=== PATIENT | male | born 1965 | race African-American/Black ===

== ENCOUNTER 2018-08-05 08:20 | Inpatient (IN) ==
[2018-08-05] MEDS ORDERED: ZOFRAN INJ 4 MG VIAL ONE ×2 (08:26→08:54)
[2018-08-05] MEDS ORDERED: ZOFRAN INJ 4 MG VIAL IVP ONE ×2 (08:28→08:59)
[2018-08-05 08:43] VITALS: BMI 27.3
[2018-08-05] MEDS ORDERED: NS 1000 ML 1,000 ML ONE (08:55)
[2018-08-05] MEDS ORDERED: PEPCID 20 MG IV PREMIX* 20 MG/50 ML BAG IV ONE ×2 (08:58→09:02)
[2018-08-05] MEDS ORDERED: PROTONIX INJ 40 MG VIAL ONE (08:59)
[2018-08-05] MEDS: NS 1000 ML 1,000 ML IV SCH ×3 (09:00→17:22)
[2018-08-05] MEDS ORDERED: PROTONIX INJ 40 MG VIAL IVP ONE (09:02)
--- NOTE | 2018-08-05 09:04 | DR.GENAD ---
HPI Time Seen Time Seen by Provider: 08/05/18 08:45 PCP Primary Care Physician: JUAN MANUEL HPI Comment HPI Comment: WORSE TODAY. Complaint/Symptoms Chief Complaint Doctors Comments: ABDOMINAL PAIN, NAUSEA, VOMITING, DYSURIA AND HEMATURIA TIMES2 DAYS. DENIES FEVER BUT HAVE LOWER BACK PAIN WELL. Chief Complaint:: PT C/O ABD PAIN, NAUSEA AND VOMITTING, AND URINATING BLOOD AND HE STATES IT IS BURNING WHEN HE URINATES. PT STATES HE HAS BEEN FEELING BAD FOR THE PAST FEW DAYS. Nurses notes reviewed Nurses Notes Review: Yes Source History Provided: Patient Mode of Arrival Mode of Arrival: Ambulatory Timing Onset of Chief Complaint: 08/03/18 Came on: Suddenly Duration Duration: Constant Duration: Days Severity Severity: Moderate Associated Signs and Symptoms Associated Signs and Symptoms: NAUSEA AND VOMITING. Other History Other History: HEMATURIA AND DYSURIA PMH PMH Past Medical History: Yes Past Medical History: Diabetes, GERD and Hypertension Past Surgical History: No Family History History of Family Medical Conditions: Yes Family Medical History: Diabetes Mellitus, [place], Sudden Cardiac and Hypertension Social History Does any household member use tobacco: No Alcohol Use: Occasionally Do you use any recreational Drugs:: No Lives With: Alone Lives Where: Home infectious screening In the last 2 months have you had wt loss of >10#?: NO Have you had fever, night sweats or hemotysis?: No Have you traveled outside the country in the last 6 months?: No Isolation: Standard ROS Review of Systems Constitutional: Weakness and Fatigue; negative Fever Eyes: No Symptoms Reported ENTM: No Symptoms Reported Respiratoy: No Symptoms Reported Cardiovascular: No Symptoms Reported Gastrointestinal/Abdominal: Abdominal Pain, Nausea and Vomiting Genitourinary: Dysuria and Frequency Neurological: No Symptoms Reported Musculoskeletal: Muscle Pain Integumentary: No Symptoms Reported Hematologic/Lymphatic: No Symptoms Reported Endocrine: No Symptoms Reported Psychiatric: No Symptoms Reported All Other Systems: Reviewed and Negative PE Vital Signs Vitals: Temperature 98.2 F Pulse Rate 84 Respiratory Rate 29 Blood Pressure [Right Arm] 175/98 Blood Pressure [Left Arm] 138/84 Blood Pressure 159/93 O2 Sat by Pulse Oximetry 91 General Limitations: No Limitations General Appearance: Alert and In No Apparent Distress Head Head Exam: Normal Inspection Eyes Eye exam: Normal Appearance ENT ENT Exam: Normal Exam External Ear Exam: Normal External Inspection TM/Canal Exam: Bilateral: Normal Nose Exam: Normal Nose Exam Mouth Exam: Normal Inspection Throat Exam: Normal Inspection Neck Neck Exam: Normal Inspection Respiratory Respiratory Exam: Normal Lung Sounds Bilat Respiratory Exam: Bilateral: Clear to Auscultation Cardiovascular Cardiovascular Exam: Regular Rate Abdominal Exam Abdominal Exam: Normal Inspection Abdominal Tenderness: RUQ Extremities Extremities Exam: Normal Inspection Back Back Exam: Normal Inspection Neurologic Neurological Exam: Alert, Oriented X3 and CN II-XII Intact; negative Motor Sensory Deficit Psychiatric Psychiatric Exam: Normal Affect and Normal Mood Skin Skin Exam: Intact MDM Differential Diagnosis Differential Diagnosis: PYELONEPHRITIS, KIDNEY STONE, UTI, BOWEL OBSTRUCTION, DIVERTICULITIS COURSE Treatment Treatment: SEE ORDERS. Consultation Consultation Comments: PATIENT ADMITTED TO DR. MCKEON. Education/Counseling Education/Counseling: Patient Educated On: Diagnosis ROR Labs Reviewed Laboratory Results Reviewed?: Yes Result Diagrams: 08/08/18 05:35 08/08/18 05:35 Laboratory: 08/05/18 09:47 Blood Blood Culture - Final 08/05/18 08:50 Blood Blood Culture - Final 08/05/18 08:57 Urine,Clean Catch Urine Culture - Final Klebsiella Pneumoniae WBC 7.3 X10^3/uL (3.6-10.0) 08/08/18 05:35 RBC 3.44 X10^6/uL (4.7-6.0) L 08/08/18 05:35 Hgb 10.2 g/dL (13.5-18.0) L 08/08/18 05:35 Hct 30.2 % (42.0-54.0) L 08/08/18 05:35 MCV 87.8 fL (80.0-100.0) 08/08/18 05:35 MCH 29.7 pg (27.0-34.0) 08/08/18 05:35 MCHC 33.9 g/dL (33.0-35.0) 08/08/18 05:35 RDW 13.3 % (11.6-16.5) 08/08/18 05:35 Plt Count 170 X10^3/uL (150.0-450.0) 08/08/18 05:35 Plt Count Comment Adequate (ADEQUATE) 08/06/18 06:00 MPV 8.1 fL (7.4-11.0) 08/08/18 05:35 Neut % (Auto) 80.4 % (42.0-75.0) H 08/08/18 05:35 Lymph % (Auto) 7.6 % (21.0-51.0) L 08/08/18 05:35 [place] % (Auto) 8.5 % (0.0-13.0) 08/08/18 05:35 Eos % (Auto) 2.9 % (0.9-2.9) 08/08/18 05:35 Baso % (Auto) 0.6 % (0.2-1.0) 08/08/18 05:35 Neut # (Auto) 5.8 x10^3/uL (2.2-4.8) H 08/08/18 05:35 Lymph # (Auto) 0.6 X10^3/uL (1.3-2.9) L 08/08/18 05:35 [place] # (Auto) 0.6 x10^3/uL (0.3-0.8) 08/08/18 05:35 Eos # (Auto) 0.2 x10^3/uL (0.0-0.2) 08/08/18 05:35 Baso # (Auto) 0.0 X10^3/uL (0.0-0.1) 08/08/18 05:35 Absolute Nucleated RBC 0.0 /100WBC 08/08/18 05:35 Plt Morphology Comment Normal (NORMAL) 08/06/18 06:00 RBC Morphology Normal (NORMAL) 08/06/18 06:00 INR Target Range - 08/05/18 08:50 INR 1.28 (0.8-1.3) 08/05/18 08:50 APTT 39.1 SECONDS (22.9-36.5) H 08/05/18 08:50 PTT Comment - 08/05/18 08:50 Sodium 139 mmol/L (136-145) 08/08/18 05:35 Corrected Sodium TNP 08/08/18 05:35 Potassium 3.3 mmol/L (3.5-5.1) L 08/08/18 05:35 Chloride 108 mmol/L (98-107) H 08/08/18 05:35 Carbon Dioxide 21.8 mmol/L (21-32) 08/08/18 05:35 BUN 11 mg/dL (7-18) 08/08/18 05:35 Creatinine 1.36 mg/dL (0.70-1.30) H 08/08/18 05:35 Est GFR (MDRD) Af Amer > 60 (>60) 08/08/18 05:35 Est GFR (MDRD) Non-Af 58 (>60) L 08/08/18 05:35 Glucose 107 mg/dL (65-99) H 08/08/18 05:35 Lactic Acid 0.8 mmol/L (0.4-2.0) 08/06/18 06:00 Calcium 7.6 mg/dL (8.5-10.1) L 08/08/18 05:35 Corrected Calcium 9.0 mg/dL (8.5-10.1) 08/08/18 05:35 Phosphorus 2.8 mg/dL (2.6-4.7) 08/06/18 06:00 Magnesium 2.2 mg/dL (1.7-2.9) 08/06/18 06:00 Total Bilirubin 0.40 mg/dL (0.2-1.0) 08/08/18 05:35 AST 16 Units/L (15-37) 08/08/18 05:35 ALT 17 Units/L (12-78) 08/08/18 05:35 Alkaline Phosphatase 57 Units/L (46-116) 08/08/18 05:35 Creatine Kinase 197 Units/L (39-308) 08/05/18 08:50 CK-MB (CK-2) 1.5 ng/mL (0-4.0) 08/05/18 08:50 CK/CKMB % Calc 0.8 % (<4) 08/05/18 08:50 Troponin I < 0.02 ng/mL (0-1.5) 08/05/18 08:50 C-Reactive Protein 151.10 mg/L (0-3.0) H 08/07/18 06:10 Total Protein 6.4 g/dL (6.4-8.2) 08/08/18 05:35 Albumin 2.2 g/dL (3.4-5.0) L 08/08/18 05:35 Globulin 4.2 g/dL (2.5-4.5) 08/08/18 05:35 Albumin/Globulin Ratio 0.5 Ratio (1.1-2.1) L 08/08/18 05:35 Amylase 88 Units/L (25-115) 08/05/18 08:50 Lipase 100 Units/L (73-393) 08/05/18 08:50 Specimen Type Clean catch urine 08/06/18 06:45 Urine Color Yellow (YELLOW) 08/06/18 06:45 Urine Appearance Cloudy (CLEAR) 08/06/18 06:45 Urine pH 5.0 (5.0 - 8.0) 08/06/18 06:45 Ur Specific [place] 1.015 (1.000-1.030) 08/06/18 06:45 Urine Protein 3+ (NEGATIVE) 08/06/18 06:45 Urine Glucose (UA) Negative (NEGATIVE) 08/06/18 06:45 Urine Ketones Negative (NEGATIVE) 08/06/18 06:45 Urine Occult Blood 5+ (NEGATIVE) 08/06/18 06:45 Urine Nitrite Negative (NEGATIVE) 08/06/18 06:45 Urine Bilirubin Negative (NEGATIVE) 08/06/18 06:45 Urine Urobilinogen Normal (NORMAL) 08/06/18 06:45 Ur Leukocyte Esterase 3+ (NEGATIVE) 08/06/18 06:45 Urine RBC 5-10 /HPF (NONE SEEN) 08/06/18 06:45 Urine WBC 30-50 /HPF (NONE SEEN) 08/06/18 06:45 Ur Squamous Epith Cells Negative /HPF (NEGATIVE) 08/06/18 06:45 Ur Transition Epith Cell Cancelled 08/05/18 08:50 Ur Renal Epithelial Cell Cancelled 08/05/18 08:50 Calcium Oxalate Crystal Cancelled 08/05/18 08:50 Cystine Crystals Cancelled 08/05/18 08:50 Uric Acid Crystals Cancelled 08/05/18 08:50 Triple Phos Crystals Cancelled 08/05/18 08:50 Tyrosine Crystals Cancelled 08/05/18 08:50 Other Crystals Cancelled 08/05/18 08:50 Amorphous Sediment Trace /HPF (NEGATIVE) 08/06/18 06:45 Urine Bacteria Trace /HPF (NEGATIVE) 08/06/18 06:45 Hyaline Casts Cancelled 08/05/18 08:50 Granular Casts Cancelled 08/05/18 08:50 Fine Granular Casts Cancelled 08/05/18 08:50 Coarse Granular Casts Cancelled 08/05/18 08:50 RBC Casts Cancelled 08/05/18 08:50 Other Casts Cancelled 08/05/18 08:50 Urine Mucus Few /HPF (NEGATIVE) 08/06/18 06:45 Urine Trichomonas Cancelled 08/05/18 08:50 Urine Yeast Cancelled 08/05/18 08:50 Urine Sperm Cancelled 08/05/18 08:50 Ur Culture Indicated? No/not indicated 08/06/18 06:45 Acetone, Semi-Quant Negative (NEGATIVE) 08/05/18 08:50 XRAY XRAY Interpreted by: Radiologist XRAY Findings: REPORT NOTED Diagnosis Discharge Problem: Sepsis due to urinary tract infection Instructions Instructions: Type 1 Diabetes Mellitus, Self Care, Adult Hypertension, [id number] Urosepsis Forms: Excuse From Work Patient Portal
[2018-08-05 09:12] LABS: COLOR,URINE BLOODY (YELLOW)
[2018-08-05 09:13] LABS: APPEARANCE,URINE CLOUDY (CLEAR); RBC,URINE TNTC /HPF (NONE SEEN)
[2018-08-05 09:14] LABS: BACTERIA,URINE NEGATIVE /HPF (NEGATIVE); SQUAMOUS EPITHELIAL CELL,UR NEGATIVE /HPF (NEGATIVE)
[2018-08-05 09:27] LABS: ALANINE AMINOTRANSFERASE 20 Units/L (12-78); ALBUMIN 3.2 g/dL (3.4-5.0); ALKALINE PHOSPHATASE 78 Units/L (46-116); AMYLASE 88 Units/L (25-115); ASPARTATE AMINO TRANSFERASE 17 Units/L (15-37); BLOOD UREA NITROGEN 38 mg/dL (7-18); CALCIUM 8.3 mg/dL (8.5-10.1); CARBON DIOXIDE 21.7 mmol/L (21-32); CHLORIDE 96 mmol/L (98-107); COR CA(FOR HYPOALB) 8.9 mg/dL (8.5-10.1); COR NA(FOR HYPERGLY) 135 mmol/L (136-145); CREATININE 2.86 mg/dL (0.70-1.30); LIPASE 100 Units/L (73-393); SODIUM 133 mmol/L (136-145); TOTAL PROTEIN 8.3 g/dL (6.4-8.2); eGFR NON BLACK RACES 25 (>60)
[2018-08-05 09:31] LABS: BASOPHILS # (AUTO) 0.1 X10^3/uL (0.0-0.1); BASOPHILS % (AUTO) 0.3 % (0.2-1.0); HEMATOCRIT 38.3 % (42.0-54.0); HEMOGLOBIN 12.8 g/dL (13.5-18.0); LYMPHOCYTES # (AUTO) 0.8 X10^3/uL (1.3-2.9); LYMPHOCYTES % (AUTO) 4.4 % (21.0-51.0); MEAN CORPUSCULAR HEMOGLOBIN 29.5 pg (27.0-34.0); MEAN CORPUSCULAR HGB CONC 33.5 g/dL (33.0-35.0); MEAN CORPUSCULAR VOLUME 88.1 fL (80.0-100.0); MEAN PLATELET VOLUME 8.6 fL (7.4-11.0); MONOCYTES # (AUTO) 3.1 x10^3/uL (0.3-0.8); MONOCYTES % (AUTO) 18.3 % (0.0-13.0); NEUTROPHILS # (AUTO) 13.1 x10^3/uL (2.2-4.8); PLATELET COUNT 192 X10^3/uL (150.0-450.0); RED BLOOD COUNT 4.35 X10^6/uL (4.7-6.0); RED CELL DISTRIBUTION WIDTH 13.6 % (11.6-16.5); SERUM ACETONE NEGATIVE (NEGATIVE); WHITE BLOOD COUNT 17.1 X10^3/uL (3.6-10.0)
[2018-08-05 09:42] LABS: LACTIC ACID 3.5 mmol/L (0.4-2.0)
[2018-08-05] MEDS ORDERED: ZOSYN VIAL 3.375 GRAMS 3.375 G in NS 100 ML IV + SPIKE MINIBAG* 100 ML IV ONE (10:49)
[2018-08-05] MEDS ORDERED: ZOSYN VIAL 3.375 GRAMS IV ONE (10:58)
[2018-08-05] MEDS ORDERED: NS 100 ML IV + SPIKE MINIBAG* 100 ML IV ONE ×2 (10:58→14:44)
[2018-08-05] MEDS ORDERED: PHENERGAN INJ 25 MG ONE (11:01)
[2018-08-05] MEDS ORDERED: PHENERGAN INJ 25 MG IV ONE (11:05)
[2018-08-05 11:34] LABS: CKMB % 0.8 % (<4); CREATINE KINASE 197 Units/L (39-308); CREATINE KINASE MB 1.5 ng/mL (0-4.0); TROPONIN I < 0.02 ng/mL (0-1.5)
--- NOTE | 2018-08-05 11:46 | CT ---
HISTORY: Abdominal pain, nausea and vomiting. Patient has been urinating blood. Burning when urinati ng. Study: Noncontrast CT scan of the abdomen and pelvis Comparison: CT scan of the abdomen and pelvis done 11/13/2016 and prior ultrasound of the abdomen yuriy chavarria 09/13/2016. Technique: Non contrasted CT images of the abdomen and pelvis are reviewed in axial, coronal and sagi ttal planes. Dose reduction techniques utilized automatic exposure control. Findings: Lung bases are clear. There is a small hiatal hernia present. The liver, spleen, gallbladder, pancrea s and right kidney are unremarkable. The upper pole of the left kidney appears edematous with perinep hric stranding. There is evidence of hydronephrosis involving the left upper renal pole with some per ipheral calcification. Differential diagnosis would include complex cyst. No evidence of stone is see n. Pyelonephritis with pus filled calices is also a consideration. Both ureters are normal. Urinary bladder is unremarkable. No evidence of bowel obstruction or perforation is seen. There is no evidenc e of free intraperitoneal air or fluid. Small lymph nodes are present in the perinephric region on th e left. A tiny calcified appendicolith is seen within a normal appendix. Osseous structures are intac t. IMPRESSION: Inflammatory appearing upper pole of the left kidney. This appears to be on the basis of hydronephros is involving the left upper pole region. Some of the calices display peripheral calcification. Differ ential diagnosis would include a complex cyst versus pyelonephritis with pus filled calices. There i s perinephric stranding and small perinephric lymph nodes are present in this region also. Further ev aluation by ultrasound or CT with IV contrast may be helpful. Reported By:
[2018-08-05] MEDS: ROCEPHIN VIAL 2 GRAMS IVP SCH (14:47)
[2018-08-05] MEDS ORDERED: POTASSIUM CHLORIDE LIQ 20 MEQ UDC PO PRN (14:52)
[2018-08-05] MEDS ORDERED: MICRO K EXTEN CAP 10 MEQ PO PRN (14:52)
[2018-08-05] MEDS ORDERED: K-RIDER 10 MEQ/NS 100 ML 10 MEQ/100 ML BAG IV PRN (14:52)
[2018-08-05] MEDS ORDERED: POTASSIUM CHL 60 MEQ/NS 0.45% 500 ML IV PRN (14:52)
[2018-08-05] MEDS ORDERED: POTASSIUM CHL 40 MEQ/NS 0.45% 500 ML IV PRN (14:52)
[2018-08-05] MEDS ORDERED: KLOR-CON PO PRN (14:52)
[2018-08-05] MEDS: MAGNESIUM SULFATE 1 GRAM/100 mL PREMIX 1 GM/100 ML BAG IV PRN ×4 (16:24→20:20)
[2018-08-05] MEDS ORDERED: PHENERGAN INJ 25 MG IV PRN (23:51)
[2018-08-06] MEDS: NS 1000 ML 1,000 ML IV SCH ×3 (01:35→22:00)
[2018-08-06 06:14] LABS: BASOPHILS # (AUTO) 0.1 X10^3/uL (0.0-0.1); BASOPHILS % (AUTO) 0.6 % (0.2-1.0); EOSINOPHILS % (AUTO) 0.3 % (0.9-2.9); HEMATOCRIT 34.6 % (42.0-54.0); HEMOGLOBIN 11.6 g/dL (13.5-18.0); LYMPHOCYTES # (AUTO) 0.6 X10^3/uL (1.3-2.9); LYMPHOCYTES % (AUTO) 6.9 % (21.0-51.0); MEAN CORPUSCULAR HEMOGLOBIN 29.5 pg (27.0-34.0); MEAN CORPUSCULAR HGB CONC 33.5 g/dL (33.0-35.0); MEAN PLATELET VOLUME 8.3 fL (7.4-11.0); MONOCYTES # (AUTO) 1.7 x10^3/uL (0.3-0.8); MONOCYTES % (AUTO) 18.9 % (0.0-13.0); NEUTROPHILS # (AUTO) 6.6 x10^3/uL (2.2-4.8); NEUTROPHILS % (AUTO) 73.3 % (42.0-75.0); PLATELET COUNT 147 X10^3/uL (150.0-450.0); RED BLOOD COUNT 3.93 X10^6/uL (4.7-6.0); RED CELL DISTRIBUTION WIDTH 13.9 % (11.6-16.5)
[2018-08-06 06:29] LABS: ALBUMIN 2.4 g/dL (3.4-5.0); CALCIUM 7.7 mg/dL (8.5-10.1); CARBON DIOXIDE 22.3 mmol/L (21-32); CREATININE 2.23 mg/dL (0.70-1.30); MAGNESIUM 2.2 mg/dL (1.7-2.9); PHOSPHORUS 2.8 mg/dL (2.6-4.7); TOTAL PROTEIN 7.1 g/dL (6.4-8.2)
[2018-08-06 06:32] LABS: LACTIC ACID 0.8 mmol/L (0.4-2.0)
[2018-08-06 06:46] LABS: PLATELET MORPHOLOGY COMMENT NORMAL (NORMAL)
[2018-08-06 07:06] LABS: BILIRUBIN,URINE NEGATIVE (NEGATIVE); BLOOD/HEMOGLOBIN,URINE 5+ (NEGATIVE); GLUCOSE, URINE NEGATIVE (NEGATIVE); KETONES,URINE NEGATIVE (NEGATIVE); LEUKOCYTE ESTERASE ,URINE 3+ (NEGATIVE); NITRITES,URINE NEGATIVE (NEGATIVE); PROTEIN,URINE 3+ (NEGATIVE); UROBILINOGEN,URINE NORMAL (NORMAL)
[2018-08-06 07:22] LABS: APPEARANCE,URINE CLOUDY (CLEAR); COLOR,URINE YELLOW (YELLOW)
[2018-08-06 07:25] LABS: BACTERIA,URINE TRACE /HPF (NEGATIVE); SQUAMOUS EPITHELIAL CELL,UR NEGATIVE /HPF (NEGATIVE)
[2018-08-06 07:26] LABS: AMORPHOUS SEDIMENT,UR TRACE /HPF (NEGATIVE); MUCUS,URINE FEW /HPF (NEGATIVE)
[2018-08-06] MEDS: K-DUR TAB 20 MEQ PO PRN (08:56)
[2018-08-06] MEDS: ROCEPHIN VIAL 2 GRAMS IVP SCH (08:57)
[2018-08-06] MEDS ORDERED: PATIENT'S HOME MEDICATION (Hydralazine [Hydralazine] 100 MG) PO SCH (09:15)
[2018-08-06] MEDS ORDERED: TOPROL XL PO ONE (09:53)
[2018-08-06] MEDS: APRESOLINE TAB 25 MG PO SCH ×2 (09:55→22:00)
[2018-08-06] MEDS: TOPROL XL PO SCH (09:56)
--- NOTE | 2018-08-06 10:22 | RAD ---
Single portable view of the chest indication: Chest pain Comparative exam: Chest radiograph done November 19, 2016 Findings/conclusion: There is cardiomegaly with interstitial edema. No focal lung consolidation is se en. Reported By:
[2018-08-06] MEDS: ZOFRAN INJ 4 MG VIAL IVP PRN (13:32)
--- NOTE | 2018-08-06 15:15 | DR.H&P ---
H&P - History & Physical for Day of: H&P Date: 08/05/18 - Chief Complaint Chief Complaint: ABDOMINAL PAIN, "PEEING BLOOD" - History of Present Illness History of Present Illness: 53 BM ER ADISSION AFTER PRESENTING WITH CO ABD PAIN, NAUSEA AND VOMITTING, AND URINATING BLOOD AND HE STATES IT IS BURNING WHEN HE URINATES. PT STATES HE HAS BEEN FEELING BAD FOR THE PAST FEW DAYS. PT HAS PMH OF HTN, DM. PT PCP [facility]. PT HAD CT WITH ACUTE PYELONEPHRITIS, UTI, CULTURES COLLECTED IN ER. PT [id number] BUN 38/CREAT 2.86. PT ADMITTED FOR IV ATBX, HYDRATION, EVALUATION OF ABDOMINAL PAIN - Past Medical History Past Medical History: Hypertension, Diabetes, GERD Additional Medical History: Constipation, H-Pylori, Back Pain - Past Surgical History Surgical History: No History - Family History Family Medical History: Diabetes Mellitus, Cancer, [place], Hypertension - Social History Does patient currently use any type of tobacco product: No Have you used tobacco products in the last 12 months: No Type of Tobacco Use: None Does any household member use tobacco: No Alcohol Use: Heavy Drug Use: None - Medications Home Medications: lisinopril Allergy (Verified 08/05/18 08:21) CONTINUE taking the following medications hydralazine 150 mg PO BID 08/05/18 [History] isosorbide dinitrate 20 mg PO HS 08/05/18 [History] isosorbide dinitrate 40 mg PO DAILY 08/05/18 [History] lorazepam [Ativan] 0.5 - 1 mg PO DAILY 08/05/18 [History] metformin 500 mg PO DAILY 08/05/18 [History] metoprolol succinate 400 mg PO QDAY 08/05/18 [History] potassium chloride 10 meq PO QDAY 08/05/18 [History] - Review of Systems Constitutional: Fever, Chills, Weakness Eyes: No Symptoms Reported, Vision Change Gastrointestinal: Nausea, Vomiting, Abdominal Pain Genitourinary: Hematuria Musculoskeletal: No Symptoms Reported Skin: No Symptoms Reported - Physical Exam Vital Signs: Temperature 98.2 F Pulse Rate 92 Respiratory Rate 22 Blood Pressure [Right Arm] 175/98 Blood Pressure [Left Arm] 138/84 Blood Pressure 156/78 O2 Sat by Pulse Oximetry 94 Oriented: Normal Eyes: Normal Ear: Normal Nose: Normal Throat: Dry Respiratory: RLL Diminished, LLL Diminished Cardiovascular: Normal. negative: Edema : Normal Auscultation: Bowel Sounds: Normal Tenderness: Suprapubic Skin: Normal Musculoskeletal: Normal Psychiatric: Anxiety Affect: Anxious Speech Pattern: Clear, Appropriate - Assessment/Plan (1) UTI (urinary tract infection) Status: Acute Plan: ADMIT, IV HYDRATION. PAIN AND NAUSEA CONTROL, IV ATBX, URINE CULTURE. STRICT I & OS, BP CONTROL. CARDIAC MONITORING, BLOOD SUGAR CONTROL. VERIFY HOME MEDS, CLEAR LIQUIDS TOLERATED WITH N/V (2) Acute renal insufficiency Status: Acute (3) Pyelonephritis Status: Acute (4) Generalized weakness Status: Acute (5) Hypertension Qualifiers: Hypertension type: essential hypertension Qualified Code(s): I10 - Essential (primary) hypertension Status: Chronic (6) GERD (gastroesophageal reflux disease) Qualifiers: Esophagitis presence: esophagitis presence not specified Qualified Code(s): K21.9 - Gastro-esophageal reflux disease without esophagitis Status: Chronic (7) Diabetes mellitus Qualifiers: Diabetes mellitus type: type 2 Diabetes mellitus truck terminal manager insulin use: without truck terminal manager use Diabetes mellitus complication status: without complication Qualified Code(s): E11.9 - Type 2 diabetes mellitus without complications Status: Chronic - Allergies Allergies/Adverse Reactions: Allergies Allergy/AdvReac Type Severity Reaction Status Date / Time lisinopril Allergy Verified 08/05/18 08:21
--- NOTE | 2018-08-06 15:22 | PCM.PROG ---
Progress Note - Progress Note for Day of Date of Exam: 08/06/18 - Subjective Subjective: 53 BM ER ADMISSION WITH ACUTE RENAL INSUFFICIENCY, UTI, ACUTE PYELONEPHRITIS. PT HAD BLOOD AND URINE CULTURE COLLECTED ON ADMISSION. PT CURRENTLY ON GENTLE HYDRATION, IV ATBX. REPORT MILD NAUSEA THIS AM, LOWER ABDOMINAL PRESSURE. PT WBC 9.0, BUN 28, CREAT 2.23 NA 138 - Past Medical Family Social History Past Med/Fam/Surg Hx: No changes since H&P Allergies: Allergies lisinopril Allergy (Verified 08/05/18 08:21) - Review of Systems ROS: No change since H&P - Vital Signs and I&O's Vital Signs: Temperature 98.2 F Pulse Rate 92 Respiratory Rate 22 Blood Pressure [Right Arm] 175/98 Blood Pressure [Left Arm] 138/84 Blood Pressure 156/78 O2 Sat by Pulse Oximetry 94 Intake and Output: Intake & Output 08/04/18 08/05/18 08/06/18 08/07/18 11:59 11:59 11:59 11:59 Intake Total 2645 / 2645 1218 / 1218 Output Total 1450 / 1450 350 / 350 Balance 1195 / 1195 868 / 868 - Physical Exam Oriented: Normal Eyes: Normal Ear: Normal Nose: Normal Throat: Dry Respiratory: Normal Cardiovascular: Normal. negative: Edema : Normal Auscultation: Bowel Sounds: Normal Tenderness: Suprapubic Skin: Normal Musculoskeletal: Normal Psychiatric: Anxiety Affect: Anxious Speech Pattern: Clear, Appropriate - Laboratory and Diagnostics Result Diagrams: 08/06/18 06:00 08/06/18 06:00 Labs: 08/05/18 08:57 Urine,Clean Catch Urine Culture - Preliminary Laboratory WBC 9.0 X10^3/uL (3.6-10.0) D 08/06/18 06:00 RBC 3.93 X10^6/uL (4.7-6.0) L 08/06/18 06:00 Hgb 11.6 g/dL (13.5-18.0) L 08/06/18 06:00 Hct 34.6 % (42.0-54.0) L 08/06/18 06:00 MCV 88.0 fL (80.0-100.0) 08/06/18 06:00 MCH 29.5 pg (27.0-34.0) 08/06/18 06:00 MCHC 33.5 g/dL (33.0-35.0) 08/06/18 06:00 RDW 13.9 % (11.6-16.5) 08/06/18 06:00 Plt Count 147 X10^3/uL (150.0-450.0) L 08/06/18 06:00 Plt Count Comment Adequate (ADEQUATE) 08/06/18 06:00 MPV 8.3 fL (7.4-11.0) 08/06/18 06:00 Neut % (Auto) 73.3 % (42.0-75.0) 08/06/18 06:00 Lymph % (Auto) 6.9 % (21.0-51.0) L 08/06/18 06:00 [place] % (Auto) 18.9 % (0.0-13.0) H 08/06/18 06:00 Eos % (Auto) 0.3 % (0.9-2.9) L 08/06/18 06:00 Baso % (Auto) 0.6 % (0.2-1.0) 08/06/18 06:00 Neut # (Auto) 6.6 x10^3/uL (2.2-4.8) H 08/06/18 06:00 Lymph # (Auto) 0.6 X10^3/uL (1.3-2.9) L 08/06/18 06:00 [place] # (Auto) 1.7 x10^3/uL (0.3-0.8) H 08/06/18 06:00 Eos # (Auto) 0.0 x10^3/uL (0.0-0.2) 08/06/18 06:00 Baso # (Auto) 0.1 X10^3/uL (0.0-0.1) 08/06/18 06:00 Absolute Nucleated RBC 0.0 /100WBC 08/06/18 06:00 Plt Morphology Comment Normal (NORMAL) 08/06/18 06:00 RBC Morphology Normal (NORMAL) 08/06/18 06:00 INR Target Range - 08/05/18 08:50 INR 1.28 (0.8-1.3) 08/05/18 08:50 APTT 39.1 SECONDS (22.9-36.5) H 08/05/18 08:50 PTT Comment - 08/05/18 08:50 Sodium 138 mmol/L (136-145) 08/06/18 06:00 Corrected Sodium 138 mmol/L (136-145) 08/06/18 06:00 Potassium 3.7 mmol/L (3.5-5.1) 08/06/18 06:00 Chloride 105 mmol/L (98-107) 08/06/18 06:00 Carbon Dioxide 22.3 mmol/L (21-32) 08/06/18 06:00 BUN 28 mg/dL (7-18) H 08/06/18 06:00 Creatinine 2.23 mg/dL (0.70-1.30) H 08/06/18 06:00 Est GFR (MDRD) Af Amer 40 (>60) L 08/06/18 06:00 Est GFR (MDRD) Non-Af 33 (>60) L 08/06/18 06:00 Glucose 116 mg/dL (65-99) H 08/06/18 06:00 Lactic Acid 0.8 mmol/L (0.4-2.0) 08/06/18 06:00 Calcium 7.7 mg/dL (8.5-10.1) L 08/06/18 06:00 Corrected Calcium 9.0 mg/dL (8.5-10.1) 08/06/18 06:00 Phosphorus 2.8 mg/dL (2.6-4.7) 08/06/18 06:00 Magnesium 2.2 mg/dL (1.7-2.9) 08/06/18 06:00 Total Bilirubin 0.70 mg/dL (0.2-1.0) 08/06/18 06:00 AST 15 Units/L (15-37) 08/06/18 06:00 ALT 16 Units/L (12-78) 08/06/18 06:00 Alkaline Phosphatase 63 Units/L (46-116) 08/06/18 06:00 Creatine Kinase 197 Units/L (39-308) 08/05/18 08:50 CK-MB (CK-2) 1.5 ng/mL (0-4.0) 08/05/18 08:50 CK/CKMB % Calc 0.8 % (<4) 08/05/18 08:50 Troponin I < 0.02 ng/mL (0-1.5) 08/05/18 08:50 C-Reactive Protein 208.00 mg/L (0-3.0) H 08/05/18 08:50 Total Protein 7.1 g/dL (6.4-8.2) 08/06/18 06:00 Albumin 2.4 g/dL (3.4-5.0) L 08/06/18 06:00 Globulin 4.7 g/dL (2.5-4.5) H 08/06/18 06:00 Albumin/Globulin Ratio 0.5 Ratio (1.1-2.1) L 08/06/18 06:00 Amylase 88 Units/L (25-115) 08/05/18 08:50 Lipase 100 Units/L (73-393) 08/05/18 08:50 Specimen Type Clean catch urine 08/06/18 06:45 Urine Color Yellow (YELLOW) 08/06/18 06:45 Urine Appearance Cloudy (CLEAR) 08/06/18 06:45 Urine pH 5.0 (5.0 - 8.0) 08/06/18 06:45 Ur Specific [place] 1.015 (1.000-1.030) 08/06/18 06:45 Urine Protein 3+ (NEGATIVE) 08/06/18 06:45 Urine Glucose (UA) Negative (NEGATIVE) 08/06/18 06:45 Urine Ketones Negative (NEGATIVE) 08/06/18 06:45 Urine Occult Blood 5+ (NEGATIVE) 08/06/18 06:45 Urine Nitrite Negative (NEGATIVE) 08/06/18 06:45 Urine Bilirubin Negative (NEGATIVE) 08/06/18 06:45 Urine Urobilinogen Normal (NORMAL) 08/06/18 06:45 Ur Leukocyte Esterase 3+ (NEGATIVE) 08/06/18 06:45 Urine RBC 5-10 /HPF (NONE SEEN) 08/06/18 06:45 Urine WBC 30-50 /HPF (NONE SEEN) 08/06/18 06:45 Ur Squamous Epith Cells Negative /HPF (NEGATIVE) 08/06/18 06:45 Ur Transition Epith Cell Cancelled 08/05/18 08:50 Ur Renal Epithelial Cell Cancelled 08/05/18 08:50 Calcium Oxalate Crystal Cancelled 08/05/18 08:50 Cystine Crystals Cancelled 08/05/18 08:50 Uric Acid Crystals Cancelled 08/05/18 08:50 Triple Phos Crystals Cancelled 08/05/18 08:50 Tyrosine Crystals Cancelled 08/05/18 08:50 Other Crystals Cancelled 08/05/18 08:50 Amorphous Sediment Trace /HPF (NEGATIVE) 08/06/18 06:45 Urine Bacteria Trace /HPF (NEGATIVE) 08/06/18 06:45 Hyaline Casts Cancelled 08/05/18 08:50 Granular Casts Cancelled 08/05/18 08:50 Fine Granular Casts Cancelled 08/05/18 08:50 Coarse Granular Casts Cancelled 08/05/18 08:50 RBC Casts Cancelled 08/05/18 08:50 Other Casts Cancelled 08/05/18 08:50 Urine Mucus Few /HPF (NEGATIVE) 08/06/18 06:45 Urine Trichomonas Cancelled 08/05/18 08:50 Urine Yeast Cancelled 08/05/18 08:50 Urine Sperm Cancelled 08/05/18 08:50 Ur Culture Indicated? No/not indicated 08/06/18 06:45 Acetone, Semi-Quant Negative (NEGATIVE) 08/05/18 08:50 - Plan (1) UTI (urinary tract infection) Status: Acute Plan: GENTLE IV HYDRATION. PAIN AND NAUSEA CONTROL, IV ATBX, URINE CULTURE. STRICT I & OS, BP CONTROL. CARDIAC MONITORING, BLOOD SUGAR CONTROL. RESUMED HYDRALALZINE AND LOPRESSOR. CLEAR LIQUIDS TOLERATED WITH N/V (2) Acute renal insufficiency Status: Acute (3) Pyelonephritis Status: Acute (4) Generalized weakness Status: Acute (5) Hypertension Status: Chronic Qualifiers: Hypertension type: essential hypertension Qualified Code(s): I10 - Essential (primary) hypertension (6) GERD (gastroesophageal reflux disease) Status: Chronic Qualifiers: Esophagitis presence: esophagitis presence not specified Qualified Code(s): K21.9 - Gastro-esophageal reflux disease without esophagitis (7) Diabetes mellitus Status: Chronic Qualifiers: Diabetes mellitus type: type 2 Diabetes mellitus intermediate designer insulin use: without penitentiary use Diabetes mellitus complication status: without complication Qualified Code(s): E11.9 - Type 2 diabetes mellitus without complications
[2018-08-07 06:35] LABS: BASOPHILS % (AUTO) 0.4 % (0.2-1.0); EOSINOPHILS # (AUTO) 0.1 x10^3/uL (0.0-0.2); EOSINOPHILS % (AUTO) 1.6 % (0.9-2.9); HEMATOCRIT 32.5 % (42.0-54.0); HEMOGLOBIN 10.9 g/dL (13.5-18.0); LYMPHOCYTES # (AUTO) 0.5 X10^3/uL (1.3-2.9); LYMPHOCYTES % (AUTO) 7.5 % (21.0-51.0); MEAN CORPUSCULAR HEMOGLOBIN 29.6 pg (27.0-34.0); MEAN CORPUSCULAR HGB CONC 33.6 g/dL (33.0-35.0); MEAN CORPUSCULAR VOLUME 88.3 fL (80.0-100.0); MEAN PLATELET VOLUME 8.2 fL (7.4-11.0); MONOCYTES # (AUTO) 0.8 x10^3/uL (0.3-0.8); MONOCYTES % (AUTO) 11.8 % (0.0-13.0); NEUTROPHILS # (AUTO) 5.6 x10^3/uL (2.2-4.8); NEUTROPHILS % (AUTO) 78.7 % (42.0-75.0); PLATELET COUNT 162 X10^3/uL (150.0-450.0); RED BLOOD COUNT 3.68 X10^6/uL (4.7-6.0); RED CELL DISTRIBUTION WIDTH 13.6 % (11.6-16.5); WHITE BLOOD COUNT 7.1 X10^3/uL (3.6-10.0)
[2018-08-07] MEDS: NS 1000 ML 1,000 ML IV SCH ×2 (06:44→10:28)
[2018-08-07 07:06] LABS: ALBUMIN 2.2 g/dL (3.4-5.0); CALCIUM 7.7 mg/dL (8.5-10.1); CARBON DIOXIDE 20.9 mmol/L (21-32); COR CA(FOR HYPOALB) 9.1 mg/dL (8.5-10.1); CREATININE 1.7 mg/dL (0.70-1.30); TOTAL PROTEIN 6.7 g/dL (6.4-8.2)
[2018-08-07] MEDS ORDERED: TOPROL XL PO ONE (09:44)
[2018-08-07] MEDS: ISOSORBIDE DINITRATE PO SCH (10:27)
[2018-08-07] MEDS: APRESOLINE TAB 25 MG PO SCH ×2 (10:27→22:00)
[2018-08-07] MEDS: ROCEPHIN VIAL 2 GRAMS IVP SCH (10:28)
[2018-08-07] MEDS: TOPROL XL PO SCH (10:28)
[2018-08-08] MEDS: NS 1000 ML 1,000 ML IV SCH ×2 (05:20→08:21)
[2018-08-08 06:24] LABS: BASOPHILS % (AUTO) 0.6 % (0.2-1.0); EOSINOPHILS # (AUTO) 0.2 x10^3/uL (0.0-0.2); EOSINOPHILS % (AUTO) 2.9 % (0.9-2.9); HEMATOCRIT 30.2 % (42.0-54.0); HEMOGLOBIN 10.2 g/dL (13.5-18.0); LYMPHOCYTES # (AUTO) 0.6 X10^3/uL (1.3-2.9); LYMPHOCYTES % (AUTO) 7.6 % (21.0-51.0); MEAN CORPUSCULAR HEMOGLOBIN 29.7 pg (27.0-34.0); MEAN CORPUSCULAR HGB CONC 33.9 g/dL (33.0-35.0); MEAN CORPUSCULAR VOLUME 87.8 fL (80.0-100.0); MEAN PLATELET VOLUME 8.1 fL (7.4-11.0); MONOCYTES # (AUTO) 0.6 x10^3/uL (0.3-0.8); MONOCYTES % (AUTO) 8.5 % (0.0-13.0); NEUTROPHILS # (AUTO) 5.8 x10^3/uL (2.2-4.8); NEUTROPHILS % (AUTO) 80.4 % (42.0-75.0); PLATELET COUNT 170 X10^3/uL (150.0-450.0); RED BLOOD COUNT 3.44 X10^6/uL (4.7-6.0); RED CELL DISTRIBUTION WIDTH 13.3 % (11.6-16.5); WHITE BLOOD COUNT 7.3 X10^3/uL (3.6-10.0)
[2018-08-08 06:31] LABS: ALANINE AMINOTRANSFERASE 17 Units/L (12-78); ALBUMIN 2.2 g/dL (3.4-5.0); ALKALINE PHOSPHATASE 57 Units/L (46-116); ASPARTATE AMINO TRANSFERASE 16 Units/L (15-37); BLOOD UREA NITROGEN 11 mg/dL (7-18); CALCIUM 7.6 mg/dL (8.5-10.1); CARBON DIOXIDE 21.8 mmol/L (21-32); CHLORIDE 108 mmol/L (98-107); CREATININE 1.36 mg/dL (0.70-1.30); SODIUM 139 mmol/L (136-145); TOTAL PROTEIN 6.4 g/dL (6.4-8.2); eGFR NON BLACK RACES 58 (>60)
[2018-08-08] MEDS ORDERED: TOPROL XL PO ONE (08:06)
[2018-08-08] MEDS: APRESOLINE TAB 25 MG PO SCH (08:12)
[2018-08-08] MEDS: TOPROL XL PO SCH (08:12)
[2018-08-08] MEDS: ISOSORBIDE DINITRATE PO SCH (08:12)
[2018-08-08] MEDS: ROCEPHIN VIAL 2 GRAMS IVP SCH (08:12)
[2018-08-08] MEDS: K-DUR TAB 20 MEQ PO PRN (09:31)
[2018-08-08] MEDS: ZOFRAN INJ 4 MG VIAL IVP PRN (11:40)
[2018-08-08 12:30] VITALS: BP 159/93
--- NOTE | 2018-08-08 13:56 | PCM.PROG ---
Progress Note - Progress Note for Day of Date of Exam: 08/07/18 - Subjective Subjective: 53 BM ER ADMISSION WITH ACUTE RENAL INSUFFICIENCY, UTI, ACUTE PYELONEPHRITIS. PT HAD BLOOD AND URINE CULTURE COLLECTED ON ADMISSION. PT CURRENTLY ON GENTLE HYDRATION, IV ATBX. REPORT MILD NAUSEA THIS AM, LOWER ABDOMINAL PRESSURE, REPORTS FEELING BETTER, GOOD APPETITE. PT WBC 97.0, BUN 19, CREAT 1.7 - Past Medical Family Social History Past Med/Fam/Surg Hx: No changes since H&P Allergies: Allergies lisinopril Allergy (Verified 08/05/18 08:21) - Review of Systems ROS: No change since H&P - Vital Signs and I&O's Vital Signs: Temperature 98.2 F Pulse Rate 84 Respiratory Rate 29 Blood Pressure [Right Arm] 175/98 Blood Pressure [Left Arm] 138/84 Blood Pressure 159/93 O2 Sat by Pulse Oximetry 91 Intake and Output: Intake & Output 08/06/18 08/07/18 08/08/18 08/09/18 11:59 11:59 11:59 11:59 Intake Total 2645 / 2645 3741 / 3741 4894 / 4894 Output Total 1450 / 1450 1445 / 1445 1700 / 1700 Balance 1195 / 1195 2296 / 2296 3194 / 3194 - Physical Exam Oriented: Normal Eyes: Normal Ear: Normal Nose: Normal Throat: Dry Respiratory: Normal Cardiovascular: Normal. negative: Edema : Normal Auscultation: Bowel Sounds: Normal Tenderness: Suprapubic Skin: Normal Musculoskeletal: Normal Psychiatric: Anxiety Affect: Anxious Speech Pattern: Clear, Appropriate - Laboratory and Diagnostics Result Diagrams: 08/08/18 05:35 08/08/18 05:35 Labs: 08/05/18 09:47 Blood Blood Culture - Preliminary 08/05/18 08:50 Blood Blood Culture - Preliminary 08/05/18 08:57 Urine,Clean Catch Urine Culture - Final Klebsiella Pneumoniae Laboratory WBC 7.3 X10^3/uL (3.6-10.0) 08/08/18 05:35 RBC 3.44 X10^6/uL (4.7-6.0) L 08/08/18 05:35 Hgb 10.2 g/dL (13.5-18.0) L 08/08/18 05:35 Hct 30.2 % (42.0-54.0) L 08/08/18 05:35 MCV 87.8 fL (80.0-100.0) 08/08/18 05:35 MCH 29.7 pg (27.0-34.0) 08/08/18 05:35 MCHC 33.9 g/dL (33.0-35.0) 08/08/18 05:35 RDW 13.3 % (11.6-16.5) 08/08/18 05:35 Plt Count 170 X10^3/uL (150.0-450.0) 08/08/18 05:35 Plt Count Comment Adequate (ADEQUATE) 08/06/18 06:00 MPV 8.1 fL (7.4-11.0) 08/08/18 05:35 Neut % (Auto) 80.4 % (42.0-75.0) H 08/08/18 05:35 Lymph % (Auto) 7.6 % (21.0-51.0) L 08/08/18 05:35 Shannon % (Auto) 8.5 % (0.0-13.0) 08/08/18 05:35 Eos % (Auto) 2.9 % (0.9-2.9) 08/08/18 05:35 Baso % (Auto) 0.6 % (0.2-1.0) 08/08/18 05:35 Neut # (Auto) 5.8 x10^3/uL (2.2-4.8) H 08/08/18 05:35 Lymph # (Auto) 0.6 X10^3/uL (1.3-2.9) L 08/08/18 05:35 Shannon # (Auto) 0.6 x10^3/uL (0.3-0.8) 08/08/18 05:35 Eos # (Auto) 0.2 x10^3/uL (0.0-0.2) 08/08/18 05:35 Baso # (Auto) 0.0 X10^3/uL (0.0-0.1) 08/08/18 05:35 Absolute Nucleated RBC 0.0 /100WBC 08/08/18 05:35 Plt Morphology Comment Normal (NORMAL) 08/06/18 06:00 RBC Morphology Normal (NORMAL) 08/06/18 06:00 INR Target Range - 08/05/18 08:50 INR 1.28 (0.8-1.3) 08/05/18 08:50 APTT 39.1 SECONDS (22.9-36.5) H 08/05/18 08:50 PTT Comment - 08/05/18 08:50 Sodium 139 mmol/L (136-145) 08/08/18 05:35 Corrected Sodium TNP 08/08/18 05:35 Potassium 3.3 mmol/L (3.5-5.1) L 08/08/18 05:35 Chloride 108 mmol/L (98-107) H 08/08/18 05:35 Carbon Dioxide 21.8 mmol/L (21-32) 08/08/18 05:35 BUN 11 mg/dL (7-18) 08/08/18 05:35 Creatinine 1.36 mg/dL (0.70-1.30) H 08/08/18 05:35 Est GFR (MDRD) Af Amer > 60 (>60) 08/08/18 05:35 Est GFR (MDRD) Non-Af 58 (>60) L 08/08/18 05:35 Glucose 107 mg/dL (65-99) H 08/08/18 05:35 Lactic Acid 0.8 mmol/L (0.4-2.0) 08/06/18 06:00 Calcium 7.6 mg/dL (8.5-10.1) L 08/08/18 05:35 Corrected Calcium 9.0 mg/dL (8.5-10.1) 08/08/18 05:35 Phosphorus 2.8 mg/dL (2.6-4.7) 08/06/18 06:00 Magnesium 2.2 mg/dL (1.7-2.9) 08/06/18 06:00 Total Bilirubin 0.40 mg/dL (0.2-1.0) 08/08/18 05:35 AST 16 Units/L (15-37) 08/08/18 05:35 ALT 17 Units/L (12-78) 08/08/18 05:35 Alkaline Phosphatase 57 Units/L (46-116) 08/08/18 05:35 Creatine Kinase 197 Units/L (39-308) 08/05/18 08:50 CK-MB (CK-2) 1.5 ng/mL (0-4.0) 08/05/18 08:50 CK/CKMB % Calc 0.8 % (<4) 08/05/18 08:50 Troponin I < 0.02 ng/mL (0-1.5) 08/05/18 08:50 C-Reactive Protein 151.10 mg/L (0-3.0) H 08/07/18 06:10 Total Protein 6.4 g/dL (6.4-8.2) 08/08/18 05:35 Albumin 2.2 g/dL (3.4-5.0) L 08/08/18 05:35 Globulin 4.2 g/dL (2.5-4.5) 08/08/18 05:35 Albumin/Globulin Ratio 0.5 Ratio (1.1-2.1) L 08/08/18 05:35 Amylase 88 Units/L (25-115) 08/05/18 08:50 Lipase 100 Units/L (73-393) 08/05/18 08:50 Specimen Type Clean catch urine 08/06/18 06:45 Urine Color Yellow (YELLOW) 08/06/18 06:45 Urine Appearance Cloudy (CLEAR) 08/06/18 06:45 Urine pH 5.0 (5.0 - 8.0) 08/06/18 06:45 Ur Specific [place] 1.015 (1.000-1.030) 08/06/18 06:45 Urine Protein 3+ (NEGATIVE) 08/06/18 06:45 Urine Glucose (UA) Negative (NEGATIVE) 08/06/18 06:45 Urine Ketones Negative (NEGATIVE) 08/06/18 06:45 Urine Occult Blood 5+ (NEGATIVE) 08/06/18 06:45 Urine Nitrite Negative (NEGATIVE) 08/06/18 06:45 Urine Bilirubin Negative (NEGATIVE) 08/06/18 06:45 Urine Urobilinogen Normal (NORMAL) 08/06/18 06:45 Ur Leukocyte Esterase 3+ (NEGATIVE) 08/06/18 06:45 Urine RBC 5-10 /HPF (NONE SEEN) 08/06/18 06:45 Urine WBC 30-50 /HPF (NONE SEEN) 08/06/18 06:45 Ur Squamous Epith Cells Negative /HPF (NEGATIVE) 08/06/18 06:45 Ur Transition Epith Cell Cancelled 08/05/18 08:50 Ur Renal Epithelial Cell Cancelled 08/05/18 08:50 Calcium Oxalate Crystal Cancelled 08/05/18 08:50 Cystine Crystals Cancelled 08/05/18 08:50 Uric Acid Crystals Cancelled 08/05/18 08:50 Triple Phos Crystals Cancelled 08/05/18 08:50 Tyrosine Crystals Cancelled 08/05/18 08:50 Other Crystals Cancelled 08/05/18 08:50 Amorphous Sediment Trace /HPF (NEGATIVE) 08/06/18 06:45 Urine Bacteria Trace /HPF (NEGATIVE) 08/06/18 06:45 Hyaline Casts Cancelled 08/05/18 08:50 Granular Casts Cancelled 08/05/18 08:50 Fine Granular Casts Cancelled 08/05/18 08:50 Coarse Granular Casts Cancelled 08/05/18 08:50 RBC Casts Cancelled 08/05/18 08:50 Other Casts Cancelled 08/05/18 08:50 Urine Mucus Few /HPF (NEGATIVE) 08/06/18 06:45 Urine Trichomonas Cancelled 08/05/18 08:50 Urine Yeast Cancelled 08/05/18 08:50 Urine Sperm Cancelled 08/05/18 08:50 Ur Culture Indicated? No/not indicated 08/06/18 06:45 Acetone, Semi-Quant Negative (NEGATIVE) 08/05/18 08:50 - Plan (1) UTI (urinary tract infection) Status: Acute Plan: GENTLE IV HYDRATION. PAIN AND NAUSEA CONTROL, IV ATBX, URINE CULTURE. STRICT I & OS, BP CONTROL. CARDIAC MONITORING, BLOOD SUGAR CONTROL. RESUMED HYDRALALZINE AND LOPRESSOR. ADVANCED DIET TOLERATED (2) Acute renal insufficiency Status: Acute (3) Pyelonephritis Status: Acute (4) Generalized weakness Status: Acute (5) Hypertension Status: Chronic Qualifiers: Hypertension type: essential hypertension Qualified Code(s): I10 - Essential (primary) hypertension (6) GERD (gastroesophageal reflux disease) Status: Chronic Qualifiers: Esophagitis presence: esophagitis presence not specified Qualified Code(s): K21.9 - Gastro-esophageal reflux disease without esophagitis (7) Diabetes mellitus Status: Chronic Qualifiers: Diabetes mellitus type: type 2 Diabetes mellitus fci insulin use: without emt intermediate use Diabetes mellitus complication status: without complication Qualified Code(s): E11.9 - Type 2 diabetes mellitus without complications
== END 2018-08-08 13:30 | disposition home or self-care (01) | DRG 690 ==
LOC: ER 08:20 → ICU 14:30
PROVIDERS: ADMIT Internal Medicine; ATTEND Internal Medicine
DX: N28.9 Disorder of kidney and ureter, unspecified; R10.84 Generalized abdominal pain; K21.9 Gastro-esophageal reflux disease without esophagitis; E86.0 Dehydration; R79.82 Elevated C-reactive protein (CRP); N39.0 Urinary tract infection, site not specified; R11.2 Nausea with vomiting, unspecified; E11.65 Type 2 diabetes mellitus with hyperglycemia; N10 Acute pyelonephritis; I12.9 Hypertensive chronic kidney disease with stage 1 through stage 4 chronic kidney disease, or unspecified chronic kidney disease; B96.1 Klebsiella pneumoniae [K. pneumoniae] as the cause of diseases classified elsewhere; R53.1 Weakness
CPT/HCPCS: 36415; 71010; 71045; 74000; 74018; 74176; 80053; 81001; 81015; 82009; 82150; 82550; 82553; 83605; 83690; 83735; 84100; 84484; 85025; 85610; 85730; 86140; 87040; 87086; 87088; 87186; 93005; 93010; 96365; 96367; 96374; 96375; 97161; 99283; 99284; A4222; C9113; S0028; J0696; J2405; J2543; J2550; J3475; J7030; J7050

== ENCOUNTER 2024-08-24 08:54 | Observation (INO) ==
--- NOTE | 2024-08-24 09:05 | EKG ---
Test Reason : tackycardia Blood Pressure : */* mmHG Vent. Rate : 140 BPM Atrial Rate : 388 BPM P-R Int : * ms QRS Dur : 76 ms QT Int : 310 ms P-R-T Axes : * 100 82 degrees QTc Int : 473 ms Atrial flutter with variable AV block Rightward axis Abnormal ECG No previous ECGs available Confirmed by Joshua Matthews ([id number]) on 08/24/2024 9:26:39 AM Referred By: Confirmed By: Joshua Matthews
--- NOTE | 2024-08-24 09:39 | DR.GENAD ---
HPI Time Seen Time Seen by Provider: 08/24/24 09:39 PCP Primary Care Physician: CHRISTOS Complaint/Symptoms Chief Complaint:: Patient states yesterday around lunch he started feeling weak,bodyaches,chills,cough, and feeling like his heart was racing but denies any chest pain. COVID-19 Coronavirus risk:travel/contact w/high risk person: No Has patient experienced Coronavirus symptoms: No Nurses notes reviewed Nurses Notes Review: Yes Source History Provided: Patient Mode of Arrival Mode of Arrival: Wheelchair Timing Onset of Chief Complaint: 08/23/24 PMH PMH Past Medical History: Yes Past Medical History: Diabetes, GERD and Hypertension Past Surgical History: No Surgical History: No History Family History History of Family Medical Conditions: Yes Family Medical History: Diabetes Mellitus, Cancer, [place] and Hypertension Social History Does patient currently use any type of tobacco product: No Have you used tobacco products in the last 12 months: No Type of Tobacco Use: None Does any household member use tobacco: No Alcohol Use: Occasionally Do you use any recreational Drugs:: No Lives With: Family Lives Where: Home Travel Risk Coronavirus risk:travel/contact w/high risk person: No Has patient experienced Coronavirus symptoms: No Infectious screening In the last 2 months have you had wt loss of >10#?: NO Have you had fever, night sweats or hemotysis?: No Have you traveled outside the country in the last 6 months?: No Isolation: Droplet PE Vital Signs Vitals: Vital Signs Temperature 99.3 F Pulse Rate 113 Pulse Rate 113 Pulse Rate 116 Pulse Rate 127 Pulse Rate 119 Pulse Rate 139 Pulse Rate 145 Pulse Rate 145 Pulse Rate 148 Pulse Rate 152 Pulse Rate 180 Pulse Rate 154 Respiratory Rate 19 Respiratory Rate 21 Respiratory Rate 20 Respiratory Rate 39 Respiratory Rate 24 Respiratory Rate 17 Respiratory Rate 22 Respiratory Rate 25 Respiratory Rate 16 Respiratory Rate 15 Respiratory Rate 34 Respiratory Rate 35 Blood Pressure 154/102 Blood Pressure 128/84 Blood Pressure 149/96 Blood Pressure 168/102 Blood Pressure 166/106 O2 Sat by Pulse Oximetry 100 O2 Sat by Pulse Oximetry 97 O2 Sat by Pulse Oximetry 100 O2 Sat by Pulse Oximetry 93 O2 Sat by Pulse Oximetry 95 O2 Sat by Pulse Oximetry 94 O2 Sat by Pulse Oximetry 99 O2 Sat by Pulse Oximetry 100 O2 Sat by Pulse Oximetry 100 O2 Sat by Pulse Oximetry 94 O2 Sat by Pulse Oximetry 95 O2 Sat by Pulse Oximetry 97 ROR Labs Reviewed 08/24/24 09:11 08/24/24 09:11 Laboratory: WBC 5.9 X10^3/uL (3.6-10.0) 08/24/24 09:11 RBC 4.22 X10^6/uL (4.7-6.0) L 08/24/24 09:11 Hgb 12.2 g/dL (13.5-18.0) L 08/24/24 09:11 Hct 37.2 % (42.0-54.0) L 08/24/24 09:11 MCV 88.2 fL (80.0-100.0) 08/24/24 09:11 MCH 28.9 pg (27.0-34.0) 08/24/24 09:11 MCHC 32.8 g/dL (33.0-35.0) L 08/24/24 09:11 RDW 14.8 % (11.6-16.5) 08/24/24 09:11 Plt Count 144 X10^3/uL (150.0-450.0) L 08/24/24 09:11 MPV 9.5 fL (7.4-11.0) 08/24/24 09:11 Neut % (Auto) 76.4 % (42.0-75.0) H 08/24/24 09:11 Lymph % (Auto) 5.1 % (21.0-51.0) L 08/24/24 09:11 Pierce % (Auto) 17.8 % (0.0-13.0) H 08/24/24 09:11 Eos % (Auto) 0.1 % (0.9-2.9) L 08/24/24 09:11 Baso % (Auto) 0.6 % (0.2-1.0) 08/24/24 09:11 Neut # (Auto) 4.5 x10^3/uL (2.2-4.8) 08/24/24 09:11 Lymph # (Auto) 0.3 X10^3/uL (1.3-2.9) L 08/24/24 09:11 Pierce # (Auto) 1.1 x10^3/uL (0.3-0.8) H 08/24/24 09:11 Eos # (Auto) 0.0 x10^3/uL (0.0-0.2) 08/24/24 09:11 Baso # (Auto) 0.0 X10^3/uL (0.0-0.1) 08/24/24 09:11 Absolute Nucleated RBC 0.0 /100WBC 08/24/24 09:11 Sodium 133 mmol/L (136-145) L 08/24/24 09:11 Sodium Cancelled 08/24/24 09:11 Corrected Sodium 135 mmol/L (136-145) L 08/24/24 09:11 Corrected Sodium Cancelled 08/24/24 09:11 Potassium 4.8 mmol/L (3.5-5.1) 08/24/24 09:11 Potassium Cancelled 08/24/24 09:11 Chloride 99 mmol/L (98-107) 08/24/24 09:11 Chloride Cancelled 08/24/24 09:11 Carbon Dioxide 20.5 mmol/L (21-32) L 08/24/24 09:11 Carbon Dioxide Cancelled 08/24/24 09:11 BUN 31 mg/dL (7-18) H 08/24/24 09:11 BUN Cancelled 08/24/24 09:11 Creatinine 3.01 mg/dL (0.70-1.30) H 08/24/24 09:11 Creatinine Cancelled 08/24/24 09:11 Est GFR (MDRD) Af Amer 27 (>60) L 08/24/24 09:11 Est GFR (MDRD) Af Amer Cancelled 08/24/24 09:11 Est GFR (MDRD) Non-Af 23 (>60) L 08/24/24 09:11 Est GFR (MDRD) Non-Af Cancelled 08/24/24 09:11 Glucose 196 mg/dL (65-99) H 08/24/24 09:11 Glucose Cancelled 08/24/24 09:11 Calcium 9.1 mg/dL (8.5-10.1) 08/24/24 09:11 Calcium Cancelled 08/24/24 09:11 Creatine Kinase 171 Units/L (39-308) 08/24/24 09:11 Troponin I High Sens 23.7 ng/L (4.0-60.0) 08/24/24 09:11 B-Natriuretic Peptide 1480 pg/mL (0-79) H 08/24/24 09:11 SARS-CoV-2 (PCR) Negative (NEGATIVE) 08/24/24 09:13 Influenza Type A (PCR) Positive (NEGATIVE) A 08/24/24 09:13 Influenza Type B (PCR) Negative (NEGATIVE) 08/24/24 09:13 RSV (PCR) Negative (NEGATIVE) 08/24/24 09:13 Opioid Opioid Risk Tool Age (Kan box if 16-45): No History of Preadolescent Sexual Abuse: No Total: 0 Total Score Risk Category: Low Risk Copyright: Clement BHATTI predicting aberrant behaviors Discharge Plan Diagnosis Discharge Problem: Atrial fibrillation with rapid ventricular response, Congestive heart failure, Acute renal insufficiency, Influenza A Discharge Plan Patient Disposition: ADMITTED INPATIENT Condition: Stable Orders to Discharge Patient Discharge Orders: Transfer (Routine); Ordered 08/24/24 Ordered By: JUDY ORTIZ
[2024-08-24 09:41] LABS: BASOPHILS % (AUTO) 0.6 % (0.2-1.0); EOSINOPHILS % (AUTO) 0.1 % (0.9-2.9); HEMATOCRIT 37.2 % (42.0-54.0); HEMOGLOBIN 12.2 g/dL (13.5-18.0); LYMPHOCYTES # (AUTO) 0.3 X10^3/uL (1.3-2.9); LYMPHOCYTES % (AUTO) 5.1 % (21.0-51.0); MEAN CORPUSCULAR HEMOGLOBIN 28.9 pg (27.0-34.0); MEAN CORPUSCULAR HGB CONC 32.8 g/dL (33.0-35.0); MEAN CORPUSCULAR VOLUME 88.2 fL (80.0-100.0); MEAN PLATELET VOLUME 9.5 fL (7.4-11.0); MONOCYTES # (AUTO) 1.1 x10^3/uL (0.3-0.8); MONOCYTES % (AUTO) 17.8 % (0.0-13.0); NEUTROPHILS # (AUTO) 4.5 x10^3/uL (2.2-4.8); NEUTROPHILS % (AUTO) 76.4 % (42.0-75.0); PLATELET COUNT 144 X10^3/uL (150.0-450.0); RED BLOOD COUNT 4.22 X10^6/uL (4.7-6.0); RED CELL DISTRIBUTION WIDTH 14.8 % (11.6-16.5); WHITE BLOOD COUNT 5.9 X10^3/uL (3.6-10.0)
[2024-08-24] MEDS: ZOFRAN INJ 4 MG VIAL IVP ONE ×2 (09:51→10:22)
[2024-08-24] MEDS ORDERED: NS 100 ML IV 100 ML ONE (09:54)
[2024-08-24 09:57] LABS: CALCIUM 9.1 mg/dL (8.5-10.1); CARBON DIOXIDE 20.5 mmol/L (21-32); CREATININE 3.01 mg/dL (0.70-1.30); POTASSIUM 4.8 mmol/L (3.5-5.1)
[2024-08-24] MEDS: CARDIZEM INJ 50 MG VIAL IVP ONE (10:00)
[2024-08-24] MEDS: CARDIZEM INJ 125 MG VIAL 125 MG in NS 100 ML IV 100 ML IV PRN (10:05)
--- NOTE | 2024-08-24 11:12 | RAD ---
EXAM:CHEST, 1 VIEWHISTORY:HIGH HEART RATE;COMPARISON:NoneFINDINGS:The cardiomediastinal silhouette is prominent. Pulmonary vascular congestion.Scattered bilateral opacities. No pneumothorax or effusion.No acute osseous abnormality.IMPRESSION:Congestion with possible mild edema. Continued follow-up recommended.THIS IS AN ELECTRONICALLY VERIFIED FINAL [id number]/2024 11:09 AM - Electronically signed by Ga Mccracken MD
[2024-08-24] MEDS: PHENERGAN INJ 25 MG IM ONE ×2 (12:11→21:02)
[2024-08-24] MEDS: LASIX IVP ONE (14:23)
[2024-08-24] MEDS: TYLENOL 325 MG TAB PO PRN (14:24)
[2024-08-24 14:38] VITALS: BMI 25.9
[2024-08-24] MEDS ORDERED: ELIQUIS ONE (16:18)
[2024-08-24] MEDS ORDERED: TAMIFLU PO ONE (16:19)
[2024-08-24] MEDS ORDERED: NS 1,000 ML IV 1,000 ML ONE (16:19)
[2024-08-24] MEDS ORDERED: ROBITUSSIN DM ONE (16:19)
[2024-08-24] MEDS ORDERED: OFIRMEV IV 1000 MG VIAL 1,000 MG/100 ML VIAL IV ONE (16:20)
[2024-08-24] MEDS: NS 1,000 ML IV 1,000 ML IV SCH (16:27)
[2024-08-24] MEDS: ROBITUSSIN DM PO PRN (16:27)
[2024-08-24] MEDS: TAMIFLU PO SCH (16:28)
[2024-08-24] MEDS: OFIRMEV IV 1000 MG VIAL 1,000 MG/100 ML VIAL IV PRN (16:28)
[2024-08-24] MEDS: ELIQUIS PO SCH (16:28)
[2024-08-24] MEDS: LASIX IVP SCH (17:30)
[2024-08-24] MEDS: LIPITOR TAB 20 MG PO SCH (20:13)
[2024-08-24] MEDS: ISOSORBIDE DINITRATE PO SCH (20:13)
[2024-08-24] MEDS: SNACK - Diabetic Appropriate PO SCH (20:13)
[2024-08-24] MEDS: NovoLIN R (or HumuLIN R) SUBCUT PRN (20:14)
[2024-08-24] MEDS: ZOFRAN INJ 4 MG VIAL ONE (21:02)
[2024-08-24] MEDS: APRESOLINE TAB 25 MG PO SCH (22:30)
[2024-08-25] MEDS: ATIVAN TAB 0.5 MG PO PRN (00:50)
[2024-08-25] MEDS: TUSSIONEX PENNKINETIC SUSP PO PRN (03:27)
[2024-08-25 05:03] LABS: BASOPHILS % (AUTO) 0.7 % (0.2-1.0); EOSINOPHILS % (AUTO) 0.8 % (0.9-2.9); HEMATOCRIT 32.4 % (42.0-54.0); HEMOGLOBIN 10.7 g/dL (13.5-18.0); LYMPHOCYTES # (AUTO) 0.3 X10^3/uL (1.3-2.9); LYMPHOCYTES % (AUTO) 7.3 % (21.0-51.0); MEAN CORPUSCULAR HGB CONC 32.9 g/dL (33.0-35.0); MEAN CORPUSCULAR VOLUME 88.1 fL (80.0-100.0); MEAN PLATELET VOLUME 9.5 fL (7.4-11.0); MONOCYTES # (AUTO) 0.9 x10^3/uL (0.3-0.8); MONOCYTES % (AUTO) 19.4 % (0.0-13.0); NEUTROPHILS # (AUTO) 3.3 x10^3/uL (2.2-4.8); NEUTROPHILS % (AUTO) 71.8 % (42.0-75.0); PLATELET COUNT 110 X10^3/uL (150.0-450.0); RED BLOOD COUNT 3.67 X10^6/uL (4.7-6.0); RED CELL DISTRIBUTION WIDTH 14.3 % (11.6-16.5); WHITE BLOOD COUNT 4.6 X10^3/uL (3.6-10.0)
[2024-08-25 05:15] LABS: ALBUMIN 2.6 g/dL (3.4-5.0); CARBON DIOXIDE 24.6 mmol/L (21-32); COR CA(FOR HYPOALB) 9.1 mg/dL (8.5-10.1); CREATININE 3.16 mg/dL (0.70-1.30); MAGNESIUM 1.3 mg/dL (2.0-2.9); POTASSIUM 4.4 mmol/L (3.5-5.1); TOTAL PROTEIN 6.6 g/dL (6.4-8.2)
[2024-08-25] MEDS ORDERED: CONSULT PHARMACY - POTASSIUM & MAGNESIUM XX SCH (06:00)
[2024-08-25] MEDS ORDERED: TOPROL XL PO ONE (08:41)
[2024-08-25] MEDS: TOPROL XL PO SCH (08:48)
[2024-08-25] MEDS: NORVASC TAB 10 MG PO SCH (08:49)
[2024-08-25] MEDS: LASIX PO SCH (08:49)
[2024-08-25] MEDS: CARDIZEM CD 120 MG 24-HR PO SCH (08:49)
[2024-08-25] MEDS: HYDROCHLOROTHIAZIDE 12.5 MG CAP PO SCH (08:50)
[2024-08-25] MEDS: MAG-OX TAB PO SCH (08:50)
[2024-08-25] MEDS: KLOR-CON 10 MEQ TAB PO SCH (08:50)
[2024-08-25] MEDS: DIABETA PO SCH (08:51)
[2024-08-25] MEDS: PROTONIX TAB 40 MG PO SCH (08:52)
[2024-08-25] MEDS: CARDIZEM INJ 50 MG VIAL ONE (08:55)
[2024-08-25] MEDS: CARDIZEM INJ 125 MG VIAL ONE (08:55)
--- NOTE | 2024-08-25 09:21 | DR.H&P ---
H&P History & Physical for Day of: H&P Date: 08/25/24 Chief Complaint Chief Complaint: Body aches, chills, and cough. History of Present Illness History of Present Illness: 59-year-old Black male who reports that yesterday, around lunch, he started feeling weak, with body aches,chills,cough, and feeling like his heart was racing, but he denies any chest pain. Reji Rivas reports feeling better. ("So are you feeling any better? Yeah.") - Reports having the flu. ("They told me you had the flu. Yeah.") - Notes atrial fibrillation was "out of whack" but has "settled down." ("And you're that your that your atrial fibrillation was getting out of whack too. But it settled down.") - Currently feels "pretty good." ("Pretty good. Pretty good?") Past Medical History Past Medical History: Diabetes, GERD and Hypertension Additional Medical History: Constipation, H-Pylori, Back Pain Past Surgical History Surgical History: No History Family History Family Medical History: Diabetes Mellitus and Hypertension Social History Does patient currently use any type of tobacco product: No Have you used tobacco products in the last 12 months: No Type of Tobacco Use: None Does any household member use tobacco: No Alcohol Use: Rarely Drug Use: None Allergies Allergies Allergy/AdvReac Type Severity Reaction Status Date / Time DEVEN Inhibitors Allergy Unknown Swollen Verified 08/24/24 09:06 lips lisinopril Allergy Verified 08/24/24 09:06 Labs 08/25/24 04:13 08/25/24 04:13 Labs: Laboratory WBC 4.6 X10^3/uL (3.6-10.0) 08/25/24 04:13 RBC 3.67 X10^6/uL (4.7-6.0) L 08/25/24 04:13 Hgb 10.7 g/dL (13.5-18.0) L 08/25/24 04:13 Hct 32.4 % (42.0-54.0) L 08/25/24 04:13 MCV 88.1 fL (80.0-100.0) 08/25/24 04:13 MCH 29.0 pg (27.0-34.0) 08/25/24 04:13 MCHC 32.9 g/dL (33.0-35.0) L 08/25/24 04:13 RDW 14.3 % (11.6-16.5) 08/25/24 04:13 Plt Count 110 X10^3/uL (150.0-450.0) L 08/25/24 04:13 MPV 9.5 fL (7.4-11.0) 08/25/24 04:13 Neut % (Auto) 71.8 % (42.0-75.0) 08/25/24 04:13 Lymph % (Auto) 7.3 % (21.0-51.0) L 08/25/24 04:13 [place] % (Auto) 19.4 % (0.0-13.0) H 08/25/24 04:13 Eos % (Auto) 0.8 % (0.9-2.9) L 08/25/24 04:13 Baso % (Auto) 0.7 % (0.2-1.0) 08/25/24 04:13 Neut # (Auto) 3.3 x10^3/uL (2.2-4.8) 08/25/24 04:13 Lymph # (Auto) 0.3 X10^3/uL (1.3-2.9) L 08/25/24 04:13 [place] # (Auto) 0.9 x10^3/uL (0.3-0.8) H 08/25/24 04:13 Eos # (Auto) 0.0 x10^3/uL (0.0-0.2) 08/25/24 04:13 Baso # (Auto) 0.0 X10^3/uL (0.0-0.1) 08/25/24 04:13 Absolute Nucleated RBC 0.1 /100WBC 08/25/24 04:13 PT 16.8 SECONDS (11.8-14.3) 08/25/24 04:13 INR Target Range - 08/25/24 04:13 INR 1.40 (0.8-1.3) H 08/25/24 04:13 APTT 45.4 SECONDS (22.9-36.5) H 08/25/24 04:13 PTT Comment - 08/25/24 04:13 Sodium 135 mmol/L (136-145) L 08/25/24 04:13 Corrected Sodium 136 mmol/L (136-145) 08/25/24 04:13 Potassium 4.4 mmol/L (3.5-5.1) 08/25/24 04:13 Chloride 101 mmol/L (98-107) 08/25/24 04:13 Carbon Dioxide 24.6 mmol/L (21-32) 08/25/24 04:13 BUN 33 mg/dL (7-18) H 08/25/24 04:13 Creatinine 3.16 mg/dL (0.70-1.30) H 08/25/24 04:13 Est GFR (MDRD) Af Amer 26 (>60) L 08/25/24 04:13 Est GFR (MDRD) Non-Af 21 (>60) L 08/25/24 04:13 Glucose 121 mg/dL (65-99) H 08/25/24 04:13 POC Glucose (mg/dL) 130 mg/dL (65-99) H 08/25/24 05:06 Lactic Acid 1.7 mmol/L (0.4-2.0) 08/24/24 14:15 Calcium 8.0 mg/dL (8.5-10.1) L 08/25/24 04:13 Corrected Calcium 9.1 mg/dL (8.5-10.1) 08/25/24 04:13 Magnesium 1.3 mg/dL (2.0-2.9) L 08/25/24 04:13 Total Bilirubin 0.40 mg/dL (0.2-1.0) 08/25/24 04:13 AST 27 Units/L (15-37) 08/25/24 04:13 ALT 27 Units/L (12-78) 08/25/24 04:13 Alkaline Phosphatase 83 Units/L (46-116) 08/25/24 04:13 Creatine Kinase 171 Units/L (39-308) 08/24/24 09:11 Troponin I High Sens 23.7 ng/L (4.0-60.0) 08/24/24 09:11 B-Natriuretic Peptide 1480 pg/mL (0-79) H 08/24/24 09:11 Total Protein 6.6 g/dL (6.4-8.2) 08/25/24 04:13 Albumin 2.6 g/dL (3.4-5.0) L 08/25/24 04:13 Globulin 4.0 g/dL (2.5-4.5) 08/25/24 04:13 Albumin/Globulin Ratio 0.7 Ratio (1.1-2.1) L 08/25/24 04:13 SARS-CoV-2 (PCR) Negative (NEGATIVE) 08/24/24 09:13 Influenza Type A (PCR) Positive (NEGATIVE) A 08/24/24 09:13 Influenza Type B (PCR) Negative (NEGATIVE) 08/24/24 09:13 RSV (PCR) Negative (NEGATIVE) 08/24/24 09:13 Review of Systems Constitutional: No Symptoms Reported Eyes: No Symptoms Reported ENT: No Symptoms Reported Respiratory: No Symptoms Reported Cardiovascular: Palpitations and Paroxysmal Noc. Dyspnea Gastrointestinal: denies Vomiting, Abdominal Pain or Diarrhea Genitourinary: Retention Musculoskeletal: No Symptoms Reported Skin: No Symptoms Reported Neurological: No Symptoms Reported Physical Exam Vital Signs: Vital Signs Temperature 99.5 F Pulse Rate 90 Pulse Rate 89 Pulse Rate 95 Pulse Rate 90 Pulse Rate 96 Respiratory Rate 18 Respiratory Rate 20 Respiratory Rate 18 Respiratory Rate 22 Respiratory Rate 24 Blood Pressure 116/62 Blood Pressure 112/68 Blood Pressure 133/77 Blood Pressure 139/82 Blood Pressure 152/91 O2 Sat by Pulse Oximetry 98 O2 Sat by Pulse Oximetry 97 O2 Sat by Pulse Oximetry 99 O2 Sat by Pulse Oximetry 100 O2 Sat by Pulse Oximetry 98 Oriented: Normal Eyes: Normal Ear: Normal Nose: Normal Throat: Normal Respiratory: Diminished Throughout Cardiovascular: Normal : Normal Auscultation: Bowel Sounds: Normal Palpation: Normal Tenderness: Normal Skin: Normal Musculoskeletal: Normal Psychiatric: Normal Mood Description: Calm Affect: Normal Speech Pattern: Clear and Appropriate Assessment/Plan (1) Atrial fibrillation with rapid ventricular response: Status: Acute Plan: IV Cardizem drip and start oral p.o. Cardizem. Plan on weaning off Cardizem drip tomorrow and resuming oral Cardizem if his heart rate is controlled. We will resume metoprolol at that time as well. (2) Acute renal insufficiency: Status: Acute Plan: Slow IV hydration. (3) Influenza A: Status: Acute Plan: Tamiflu, jet nebs with supplemental O2 and respiratory consultation. (4) CHF (congestive heart failure): Qualifiers: Congestive heart failure chronicity: acute on chronic Congestive heart failure type: combined Qualified Code(s): I50.43 - Acute on chronic combined systolic (congestive) and diastolic (congestive) heart failure Status: Chronic Plan: Diuresis when needed. (5) Hypertension: Qualifiers: Hypertension type: essential hypertension Qualified Code(s): I10 - Essential (primary) hypertension Status: Chronic Plan: Resume metoprolol and we are adding Cardizem CD 120 mg daily. Resume hydralazine 100 mg 3 times daily. (6) GERD (gastroesophageal reflux disease): Qualifiers: Esophagitis presence: esophagitis presence not specified Qualified Code(s): K21.9 - Gastro-esophageal reflux disease without esophagitis Status: Chronic Plan: Continue PPI. (7) Anxiety with depression: Status: None Plan: Continue lorazepam 0.5 mg p.o. twice daily as needed anxiety. (8) Type 2 diabetes mellitus: Status: None Plan: Slight scale regular insulin per protocol if needed. We will also resume his glyburide 2.5 mg daily. (9) Kidney disease, chronic, stage IV (severe, EGFR 15-29 ml/min): Status: Acute Plan: Monitor daily renal function. IV hydration at this time. Review H&P Reviewed: Yes Patient was examined?: Yes
--- NOTE | 2024-08-25 11:16 | RAD ---
EXAM:Portable chestHISTORY:Follow-up pneumoniaCOMPARISON:08/24/2024FINDINGS:H eart is enlarged. Mild pulmonary venous congestion is present. No interstitial edema, alveolar edema, alveolar infiltrates or pleural effusions are identified. Bony thorax is unremarkable.IMPRESSION:Cardiomegaly with pulmonary venous congestionNo edema or pneumonia on today's examinationTHIS IS AN ELECTRONICALLY VERIFIED FINAL [id number]/2024 11:13 AM - Electronically signed by Ga Mccracken MD
[2024-08-25] MEDS: ZOFRAN INJ 4 MG VIAL IVP PRN (14:08)
[2024-08-25] MEDS ORDERED: TYLENOL 325 MG TAB PO PRN (19:11)
[2024-08-25] MEDS: ROCEPHIN VIAL 1 GRAM 1 G in NS 100 ML IV 100 ML IV SCH (20:03)
[2024-08-25] MEDS: TAMIFLU PO SCH (20:04)
[2024-08-25] MEDS: COLACE CAP 100 MG PO PRN (20:05)
[2024-08-26 04:34] LABS: EOSINOPHILS # (AUTO) 0.1 x10^3/uL (0.0-0.2)
[2024-08-26 04:49] LABS: LYMPHOCYTES # (AUTO) 0.5 X10^3/uL (1.3-2.9); NEUTROPHILS # (AUTO) 1.4 x10^3/uL (2.2-4.8)
[2024-08-26 04:54] LABS: EOSINOPHILS % (AUTO) 3.7 % (0.9-2.9); HEMATOCRIT 33.1 % (42.0-54.0); HEMOGLOBIN 10.9 g/dL (13.5-18.0); LYMPHOCYTES % (AUTO) 18.5 % (21.0-51.0); MEAN CORPUSCULAR HEMOGLOBIN 29.2 pg (27.0-34.0); MEAN CORPUSCULAR HGB CONC 33.1 g/dL (33.0-35.0); MEAN CORPUSCULAR VOLUME 88.3 fL (80.0-100.0); MEAN PLATELET VOLUME 9.2 fL (7.4-11.0); MONOCYTES # (AUTO) 0.5 x10^3/uL (0.3-0.8); MONOCYTES % (AUTO) 21.5 % (0.0-13.0); NEUTROPHILS % (AUTO) 55.3 % (42.0-75.0); PLATELET COUNT 112 X10^3/uL (150.0-450.0); RED BLOOD COUNT 3.75 X10^6/uL (4.7-6.0); RED CELL DISTRIBUTION WIDTH 14.5 % (11.6-16.5); WHITE BLOOD COUNT 2.5 X10^3/uL (3.6-10.0)
[2024-08-26 05:09] LABS: PLATELET MORPHOLOGY COMMENT NORMAL (NORMAL)
[2024-08-26 06:38] LABS: ALANINE AMINOTRANSFERASE 24 Units/L (12-78); ALBUMIN 2.4 g/dL (3.4-5.0); ALKALINE PHOSPHATASE 73 Units/L (46-116); ASPARTATE AMINO TRANSFERASE 25 Units/L (15-37); BLOOD UREA NITROGEN 31 mg/dL (7-18); CALCIUM 7.8 mg/dL (8.5-10.1); CARBON DIOXIDE 25.5 mmol/L (21-32); CHLORIDE 102 mmol/L (98-107); COR CA(FOR HYPOALB) 9.1 mg/dL (8.5-10.1); CREATININE 3.23 mg/dL (0.70-1.30); GLUCOSE 86 mg/dL (65-99); MAGNESIUM 1.5 mg/dL (2.0-2.9); POTASSIUM 4.1 mmol/L (3.5-5.1); SODIUM 135 mmol/L (136-145); TOTAL PROTEIN 6.3 g/dL (6.4-8.2); eGFR NON BLACK RACES 21 (>60)
[2024-08-26] MEDS ORDERED: CONSULT PHARMACY - POTASSIUM & MAGNESIUM XX SCH (07:00)
[2024-08-26] MEDS: CARDIZEM CD 180 MG 24-HR PO SCH (09:27)
[2024-08-26] MEDS: PROTONIX INJ 40 MG VIAL IVP SCH (09:30)
[2024-08-26] MEDS: MAG-OX TAB PO SCH (09:31)
[2024-08-26] MEDS: TOPROL XL PO ONE (09:37)
[2024-08-26] MEDS: PROTONIX INJ 40 MG VIAL ONE (09:38)
[2024-08-27 04:56] LABS: BASOPHILS % (AUTO) 0.9 % (0.2-1.0); EOSINOPHILS # (AUTO) 0.1 x10^3/uL (0.0-0.2); EOSINOPHILS % (AUTO) 3.3 % (0.9-2.9); HEMATOCRIT 34.6 % (42.0-54.0); HEMOGLOBIN 11.3 g/dL (13.5-18.0); LYMPHOCYTES # (AUTO) 0.6 X10^3/uL (1.3-2.9); LYMPHOCYTES % (AUTO) 13.6 % (21.0-51.0); MEAN CORPUSCULAR HEMOGLOBIN 28.7 pg (27.0-34.0); MEAN CORPUSCULAR HGB CONC 32.6 g/dL (33.0-35.0); MEAN PLATELET VOLUME 9.1 fL (7.4-11.0); MONOCYTES # (AUTO) 0.6 x10^3/uL (0.3-0.8); NEUTROPHILS # (AUTO) 2.9 x10^3/uL (2.2-4.8); NEUTROPHILS % (AUTO) 68.2 % (42.0-75.0); PLATELET COUNT 120 X10^3/uL (150.0-450.0); RED BLOOD COUNT 3.93 X10^6/uL (4.7-6.0); RED CELL DISTRIBUTION WIDTH 14.3 % (11.6-16.5); WHITE BLOOD COUNT 4.2 X10^3/uL (3.6-10.0)
[2024-08-27 05:04] LABS: BLOOD UREA NITROGEN 28 mg/dL (7-18); CALCIUM 8.4 mg/dL (8.5-10.1); CARBON DIOXIDE 26.2 mmol/L (21-32); CHLORIDE 104 mmol/L (98-107); CREATININE 2.81 mg/dL (0.70-1.30); GLUCOSE 87 mg/dL (65-99); MAGNESIUM 1.5 mg/dL (2.0-2.9); POTASSIUM 4.4 mmol/L (3.5-5.1); SODIUM 140 mmol/L (136-145); eGFR NON BLACK RACES 25 (>60)
[2024-08-27] MEDS ORDERED: CONSULT PHARMACY - POTASSIUM & MAGNESIUM XX SCH (06:00)
[2024-08-27] MEDS: MAG-OX TAB PO ONE (06:16)
[2024-08-27 08:15] VITALS: TEMP 98.3
[2024-08-27] MEDS ORDERED: TOPROL XL PO ONE (08:23)
[2024-08-27] MEDS: MAG-OX TAB PO SCH (09:03)
--- NOTE | 2024-08-27 09:33 | PCM.PROG ---
Progress Note Progress Note for Day of Date of Exam: 08/26/24 Subjective Subjective: Patient is doing well this morning he reports. He is breathing is better and is not having gypsy from his influenza. His heart rate is still slightly elevated above 100 and shooting up to the 120s and 130s at times. We will continue his current treatment and plan on increasing his Cardizem CD to 180 mg daily from 120 mg daily. Continue Eliquis 5 mg p.o. twice daily. He is currently receiving Tamiflu 30 mg twice daily for influenza infection. Plan on discharge tomorrow if his heart rate is stable. Past Medical Family Social History Allergies: Allergies DEVEN Inhibitors Allergy (Unknown, Verified 08/24/24 09:06) Swollen lips Onset Date: 05/21/2016 lisinopril Allergy (Verified 08/24/24 09:06) Review of Systems ROS: No change since H&P Vital Signs and I&O's Vital Signs: Vital Signs Temperature 98.3 F Temperature 98.8 F Pulse Rate 97 Pulse Rate 107 Pulse Rate 101 Pulse Rate 104 Pulse Rate 105 Pulse Rate 104 Pulse Rate 107 Pulse Rate 101 Pulse Rate 97 Pulse Rate 96 Pulse Rate 94 Pulse Rate 98 Pulse Rate 96 Pulse Rate 99 Pulse Rate 100 Pulse Rate 101 Pulse Rate 99 Pulse Rate 101 Pulse Rate 93 Pulse Rate 98 Pulse Rate 97 Pulse Rate 100 Pulse Rate 99 Pulse Rate 98 Pulse Rate 99 Pulse Rate 105 Pulse Rate 101 Pulse Rate 99 Respiratory Rate 17 Respiratory Rate 21 Respiratory Rate 22 Respiratory Rate 18 Respiratory Rate 18 Respiratory Rate 16 Respiratory Rate 18 Respiratory Rate 20 Respiratory Rate 17 Respiratory Rate 17 Respiratory Rate 19 Respiratory Rate 31 Respiratory Rate 28 Respiratory Rate 37 Respiratory Rate 19 Respiratory Rate 23 Respiratory Rate 24 Respiratory Rate 22 Respiratory Rate 25 Respiratory Rate 23 Respiratory Rate 20 Respiratory Rate 17 Respiratory Rate 22 Respiratory Rate 26 Respiratory Rate 30 Respiratory Rate 26 Respiratory Rate 26 Respiratory Rate 20 Blood Pressure 144/72 Blood Pressure 132/67 Blood Pressure 125/68 Blood Pressure 122/63 Blood Pressure 127/75 Blood Pressure 128/77 Blood Pressure 121/79 Blood Pressure 134/77 O2 Sat by Pulse Oximetry 94 O2 Sat by Pulse Oximetry 95 O2 Sat by Pulse Oximetry 97 O2 Sat by Pulse Oximetry 100 O2 Sat by Pulse Oximetry 100 O2 Sat by Pulse Oximetry 100 O2 Sat by Pulse Oximetry 100 O2 Sat by Pulse Oximetry 99 O2 Sat by Pulse Oximetry 100 O2 Sat by Pulse Oximetry 100 O2 Sat by Pulse Oximetry 100 O2 Sat by Pulse Oximetry 100 O2 Sat by Pulse Oximetry 100 O2 Sat by Pulse Oximetry 100 O2 Sat by Pulse Oximetry 100 O2 Sat by Pulse Oximetry 100 O2 Sat by Pulse Oximetry 100 O2 Sat by Pulse Oximetry 100 O2 Sat by Pulse Oximetry 98 O2 Sat by Pulse Oximetry 99 O2 Sat by Pulse Oximetry 99 O2 Sat by Pulse Oximetry 99 O2 Sat by Pulse Oximetry 100 O2 Sat by Pulse Oximetry 100 O2 Sat by Pulse Oximetry 100 O2 Sat by Pulse Oximetry 100 O2 Sat by Pulse Oximetry 100 O2 Sat by Pulse Oximetry 100 Intake and Output: Intake & Output 08/24/24 08/25/24 08/26/24 08/27/24 11:59 11:59 11:59 11:59 Intake Total 1368 / 1368 2508 / 2508 981 / 981 Output Total 1300 / 1300 1949 / 1949 1050 / 1050 Balance 558 / 558 -69 / -69 Physical Exam Oriented: Normal Eyes: Normal Ear: Normal Nose: Normal Throat: Normal Respiratory: Normal Cardiovascular: Normal : Normal Auscultation: Bowel Sounds: Normal Tenderness: Normal Skin: Normal Musculoskeletal: Normal Psychiatric: Normal Mood Description: Calm Affect: Normal Speech Pattern: Clear and Appropriate Laboratory and Diagnostics 08/27/24 04:30 08/27/24 04:30 Labs: 08/24/24 14:20 Blood Blood Culture Gram Stain - Final 08/24/24 14:20 Blood Blood Culture - Final 08/24/24 14:15 Blood Blood Culture - Preliminary Laboratory WBC 4.2 X10^3/uL (3.6-10.0) 08/27/24 04:30 RBC 3.93 X10^6/uL (4.7-6.0) L 08/27/24 04:30 Hgb 11.3 g/dL (13.5-18.0) L 08/27/24 04:30 Hct 34.6 % (42.0-54.0) L 08/27/24 04:30 MCV 88.0 fL (80.0-100.0) 08/27/24 04:30 MCH 28.7 pg (27.0-34.0) 08/27/24 04:30 MCHC 32.6 g/dL (33.0-35.0) L 08/27/24 04:30 RDW 14.3 % (11.6-16.5) 08/27/24 04:30 Plt Count 120 X10^3/uL (150.0-450.0) L 08/27/24 04:30 Plt Count Comment Decreased (ADEQUATE) 08/26/24 04:01 MPV 9.1 fL (7.4-11.0) 08/27/24 04:30 Neut % (Auto) 68.2 % (42.0-75.0) 08/27/24 04:30 Lymph % (Auto) 13.6 % (21.0-51.0) L 08/27/24 04:30 [place] % (Auto) 14.0 % (0.0-13.0) H 08/27/24 04:30 Eos % (Auto) 3.3 % (0.9-2.9) H 08/27/24 04:30 Baso % (Auto) 0.9 % (0.2-1.0) 08/27/24 04:30 Neut # (Auto) 2.9 x10^3/uL (2.2-4.8) 08/27/24 04:30 Lymph # (Auto) 0.6 X10^3/uL (1.3-2.9) L 08/27/24 04:30 [place] # (Auto) 0.6 x10^3/uL (0.3-0.8) 08/27/24 04:30 Eos # (Auto) 0.1 x10^3/uL (0.0-0.2) 08/27/24 04:30 Baso # (Auto) 0.0 X10^3/uL (0.0-0.1) 08/27/24 04:30 Absolute Nucleated RBC 0.1 /100WBC 08/27/24 04:30 Total Counted 100 08/26/24 04:01 Neutrophils % (Manual) 46 % (39-76) 08/26/24 04:01 Lymphocytes % (Manual) 28 % (13-43) 08/26/24 04:01 Monocytes % (Manual) 26 % (4-9) H 08/26/24 04:01 Plt Morphology Comment Normal (NORMAL) 08/26/24 04:01 RBC Morphology Normal (NORMAL) 08/26/24 04:01 PT 16.8 SECONDS (11.8-14.3) 08/25/24 04:13 INR Target Range - 08/25/24 04:13 INR 1.40 (0.8-1.3) H 08/25/24 04:13 APTT 45.4 SECONDS (22.9-36.5) H 08/25/24 04:13 PTT Comment - 08/25/24 04:13 Sodium 140 mmol/L (136-145) 08/27/24 04:30 Corrected Sodium TNP 08/27/24 04:30 Potassium 4.4 mmol/L (3.5-5.1) 08/27/24 04:30 Chloride 104 mmol/L (98-107) 08/27/24 04:30 Carbon Dioxide 26.2 mmol/L (21-32) 08/27/24 04:30 BUN 28 mg/dL (7-18) H 08/27/24 04:30 Creatinine 2.81 mg/dL (0.70-1.30) H 08/27/24 04:30 Est GFR (MDRD) Af Amer 30 (>60) L 08/27/24 04:30 Est GFR (MDRD) Non-Af 25 (>60) L 08/27/24 04:30 Glucose 87 mg/dL (65-99) 08/27/24 04:30 POC Glucose (mg/dL) 82 mg/dL (65-99) 08/27/24 05:10 Hemoglobin A1c 7.4 % 08/26/24 04:01 Lactic Acid 1.7 mmol/L (0.4-2.0) 08/24/24 14:15 Calcium 8.4 mg/dL (8.5-10.1) L 08/27/24 04:30 Corrected Calcium 9.1 mg/dL (8.5-10.1) 08/26/24 04:01 Magnesium 1.5 mg/dL (2.0-2.9) L 08/27/24 04:30 Total Bilirubin 0.20 mg/dL (0.2-1.0) 08/26/24 04:01 AST 25 Units/L (15-37) 08/26/24 04:01 ALT 24 Units/L (12-78) 08/26/24 04:01 Alkaline Phosphatase 73 Units/L (46-116) 08/26/24 04:01 Creatine Kinase 171 Units/L (39-308) 08/24/24 09:11 Troponin I High Sens 23.7 ng/L (4.0-60.0) 08/24/24 09:11 B-Natriuretic Peptide 1480 pg/mL (0-79) H 08/24/24 09:11 Total Protein 6.3 g/dL (6.4-8.2) L 08/26/24 04:01 Albumin 2.4 g/dL (3.4-5.0) L 08/26/24 04:01 Globulin 3.9 g/dL (2.5-4.5) 08/26/24 04:01 Albumin/Globulin Ratio 0.6 Ratio (1.1-2.1) L 08/26/24 04:01 SARS-CoV-2 (PCR) Negative (NEGATIVE) 08/24/24 09:13 Influenza Type A (PCR) Positive (NEGATIVE) A 08/24/24 09:13 Influenza Type B (PCR) Negative (NEGATIVE) 08/24/24 09:13 RSV (PCR) Negative (NEGATIVE) 08/24/24 09:13 Plan (1) Atrial fibrillation with rapid ventricular response: Status: Acute Plan: Increase Cardizem CD from 120 mg daily to 180 mg daily. (2) Acute renal insufficiency: Status: Acute Plan: Slow IV hydration. (3) Influenza A: Status: Acute Narrative Support Text: Improving. Plan: Tamiflu, jet nebs with supplemental O2 and respiratory consultation. (4) CHF (congestive heart failure): Status: Chronic Qualifiers: Congestive heart failure chronicity: acute on chronic Congestive heart failure type: combined Qualified Code(s): I50.43 - Acute on chronic combined systolic (congestive) and diastolic (congestive) heart failure Plan: Diuresis when needed. (5) Hypertension: Status: Chronic Qualifiers: Hypertension type: essential hypertension Qualified Code(s): I10 - Essential (primary) hypertension Plan: Resume metoprolol and we are adding Cardizem CD 120 mg daily. Resume hydralazine 100 mg 3 times daily. (6) GERD (gastroesophageal reflux disease): Status: Chronic Qualifiers: Esophagitis presence: esophagitis presence not specified Qualified Code(s): K21.9 - Gastro-esophageal reflux disease without esophagitis Plan: Continue PPI. (7) Anxiety with depression: Status: None Plan: Continue lorazepam 0.5 mg p.o. twice daily as needed anxiety. (8) Type 2 diabetes mellitus: Status: None Plan: Slight scale regular insulin per protocol if needed. We will also resume his glyburide 2.5 mg daily. (9) Kidney disease, chronic, stage IV (severe, EGFR 15-29 ml/min): Status: Acute Plan: Monitor daily renal function. IV hydration at this time.
[2024-08-27 10:37] VITALS: BP 116/67; PULSE 103; RESP 18; O2SAT 96
== END 2024-08-27 11:30 | disposition home or self-care (01) ==
LOC: ER 08:54 → ICU 11:30 → INTOOBSV 11:30 → ICU 12:41
PROVIDERS: ADMIT Family Medicine; ATTEND Family Medicine
DX: R79.1 Abnormal coagulation profile; Z29.89 Encounter for other specified prophylactic measures; E11.65 Type 2 diabetes mellitus with hyperglycemia; J10.1 Influenza due to other identified influenza virus with other respiratory manifestations; Z65.8 Other specified problems related to psychosocial circumstances; K21.9 Gastro-esophageal reflux disease without esophagitis; I50.43 Acute on chronic combined systolic (congestive) and diastolic (congestive) heart failure; B96.89 Other specified bacterial agents as the cause of diseases classified elsewhere; E83.42 Hypomagnesemia; N18.4 Chronic kidney disease, stage 4 (severe); Z20.822 Contact with and (suspected) exposure to COVID-19; F41.8 Other specified anxiety disorders; R94.31 Abnormal electrocardiogram [ECG] [EKG]; R00.0 Tachycardia, unspecified; N28.89 Other specified disorders of kidney and ureter; I48.91 Unspecified atrial fibrillation; R11.10 Vomiting, unspecified; E87.1 Hypo-osmolality and hyponatremia; I13.0 Hypertensive heart and chronic kidney disease with heart failure and stage 1 through stage 4 chronic kidney disease, or unspecified chronic kidney disease